=== PATIENT | female | born 1990 | race Hispanic/Latino ===

== ENCOUNTER 2016-12-07 19:35 | Observation (INO) | payer OTHER ==
[~2016-12-07] VITALS: Ht 152.4 cm; Wt 64.6 kg
[~2016-12-07 19:35] MED LIST: Benzocaine TOPICAL; Docusate Sodium PO; FERR325T39 PO; Ibuprofen PO; Lanolin TOPICAL; PNV1TABL9 PO; TUCPAD TOPICAL
[2016-12-07 19:41] VITALS: BP 146/98; PULSE 88; RESP 16; O2SAT 99
[2016-12-07 20:31] LABS: BASOPHILS % (AUTO) 0.3 % (0-3); EOSINOPHILS % (AUTO) 1.3 % (0-5); MONOCYTES % (AUTO) 5.2 % (4-12); Mean Corpuscular Hemoglobin 27.8 pg (27.0-35.0); NEUTROPHILS % (AUTO) 69.3 % (40-74); Platelet Count 234 bil/L (150-400)
--- NOTE | 2016-12-07 21:46 | ED.REPORT ---
HPI- Female Date of Service Dec 07, 2016 ED Provider: Dr. Nathan Mckeon D.O. A 26 year old female presents to the ED with left-sided sharp abdominal pain onset suddenly today. The patient also reports moderate vaginal bleeding. She recently tested positive on an at-home test and had a routine pelvic US yesterday, which indicated an empty uterus, a thick-walled mass adjacent and contiguous with the left ovary, and simple left and complex right ovarian cysts. Nursing Notes Stated Complaint: ABDOMINAL PAIN, BLEEDING WITH Chief Complaint: Female Abdominal Pain Nursing Notes Reviewed: Yes Allergies: Coded Allergies: No Known Allergies (Unverified Allergy, Unknown, 12/07/16) Scheduled ([Docusate Sodium]) 100 MG CAPSULE 100 MG PO BID Ferrous Sulfate (Iron) 325 Mg Tablet 325 MG PO DAILY Pnv Cmb#21/Iron/Folic Acid ( Complete Caplet) 1 Each Tablet 1 EACH PO DAILY Scheduled PRN ([Benzocaine]) 1 SPRAY/GM SPRAY 1 SPRAY TOPICAL PRN PRN PRN for perineal pain ([Ibuprofen]) 800 MG TABLET 800 MG PO Q6H PRN PRN For Pain ([Lanolin]) 14 APPLIC/7 GM OINT 1 APPLIC TOPICAL PRN PRN PRN apply to nipples Witch Lyndsey/Glycerin (A.e.r Pads) 12 Towelette/Pkg Towelette 1 TOWELETTE TOPICAL PRN PRN PRN for perineal pain General Time Seen by MD: 21:45 Chief Complaint Abdominal pain... (Left-sided) Hx Obtained From: Patient Arrived By: Walk-in Sudden in Onset?: Yes Onset Occurred: 9 - 12 hours ago Symptom Duration: Since onset Location: : LLQ: LUQ Quality: Painful, Sharp Severity: Current: Moderate Severity: Maximum: Moderate Associated with: Denies: Fever Status: Positive - home urine HCG : 2 Para: 1 Pertinent Negative: Relieved by nothing Recent Healthcare: Recent doctor visit Similar Sx Previous: No Past Medical History Past Medical History - 12/07/16 Exercise-induced and allergy induced asthma Chlamydia Past Surgical History None reported Smoking History Never Smoker Social History Other Social History: , Lives with children Ambulatory Status Independent Review of Systems Constitutional: Denies: Fever GI: Reports: Abdominal pain (Left-sided), Denies: Diarrhea, Vomiting Female: Reports: Vaginal bleeding - abnl Complete sys rev & neg: except as marked. Respiratory: Reports: Shortness of breath Physical Exam Initial Vital Signs Vital Signs (First) Date Time Temp Pulse Resp B/P Pulse Ox O2 Delivery O2 Flow Rate FiO2 12/07/16 19:41 36.6 88 16 146/98 99 Room Air Initial VS: Reviewed Head / Eyes: Atraumatic, Normocephalic ENT: Conjunctiva normal, No scleral icterus Neck: Supple, Full range of motion Respiratory: Breath sounds normal, Clear to auscultation, No respiratory distress Cardiovascular: Regular rate & rhythm, Heart sounds normal Skin: Warm, Dry, No cyanosis Neurologic: Alert, Oriented, Nonfocal Psychiatric: Mood/affect normal, Behavior normal, Normal thought content General/Constitutional: Awake, Alert Abdomen: Soft Tenderness/Guarding/Rebound: Positive: Tender LLQ... (Mild) Interpretation & Diagnostics Lab Results Interpretation Result Diagram: 12/08/16 0110 Test 12/07/16 20:17 12/07/16 23:02 HCG Beta Subunit 3101mIU/mL Hold Navarro Top Tube Received (Received) Hold Purple Top Tube Received (Received) US Focused OB US PELVIS TRANSABDOMINAL AND TRANSVAGINAL IMPRESSION: Findings are most worrisome for ruptured ectopic and surgical exploration is needed, and has been arranged. Findings discussed with Dr. Mckeon at 12/08/2016 12:12:19 AM PST Transmitted to ED by Gio Green D.O. at 12/08/2016 - 12:14:37 AM PST Exam Performed by: Allied health pract Exam Interpreted by: Radiologist Re-Eval/Medical Decision Med Decision/Clinical Course 26-year-old female presents with sudden onset left lower pelvic pain. Evidently she had an ultrasound yesterday that was suspicious for possible ectopic with a complex left ovarian lesion. Dr. Marquez referred to ER. On examination vitals were stable. She was tender in left lower quadrant however she did not have peritonitis. Initial CBC was normal. Quant hCG was 3000. Repeat ultrasound showed a moderate amount of hemoperitoneum and the complex left ovarian mass to have increased in size. I initially consulted the on-call intermediate manager Dr. Vela. He evaluated Oxana in the emergency department and he has requested that Dr. Terrell evaluate because he is unable to take Oxana to the operating room because he has a patient in active labor. Dr. Terrell graciously evaluated Oxana in the emergency department and will be taking him to the operating room for definitive care. Source of Hx: Old records Re-Evaluation/Progress : Time of Eval: 22:46 Patient Status: Condition improved Re-Evaluation/Progress Note: Discussed with patient US and lab results, diagnosis, and plan for admit. Patient agrees with plan for care and all questions were addressed. Consultation #1: Referral / Consult Name: Horace Vela MD Call Returned at: 22:44 Weapons Engineer: Will see patient, Agrees with eval, Agrees with plan Note: SUPERVISOR ASSEMBLY DEPARTMENT Consultation #2: Referral / Consult Name: Horace Vela MD Call Returned at: 23:07 Weapons Engineer: Agrees with eval, Agrees with plan, Referred to other consult ( ) Note: SUPERVISOR ASSEMBLY DEPARTMENT: Recommends consulting with Dr. Terrell Consultation #3: Referral / Consult Name: Madi Terrell MD Call Returned at: 23:09 Weapons Engineer: Will see patient, Agrees with eval, Agrees with plan, Accepts admit Note: saute chef: Discussed patient's case Counseled Regarding: Diagnosis, Lab results, Need for admission Discharge & Departure Shift Change Sign-Out Response to Therapy: Improved Impression: Primary Impression: Ruptured ectopic Disposition: ADMITTED TO HOSPITAL Discharge Condition All VS Reviewed: Yes Condition: Stable Referrals: Dinora Marquez MD (PCP) Crit Care Except Billable Proc Time Spent: 30-74 minutes Services Performed: Patient management by me, Time spent at bedside, Reviewing test results, Reviewing imaging, Discussing patient care, Documentation in record Scribe Attestation Portions of this note were transcribed by Trista Baron. I, Dr. Mckeon, personally performed the history, physical exam, and medical decision-making; I reviewed and confirmed the accuracy of the information in the transcribed note. Signed by: Lore Pagan, 12/08/2016, 00:57 copies to: Dinora Marquez MD, Todd P DO Dec 07, 2016 21:46 TRISTA BARON Dec 07, 2016 22:03 SUPERVISOR ASSEMBLY DEPARTMENT: Recommends consulting with Dr. Terrell Consultation #3: Referral / Consult Name: Madi Terrell MD Call Returned at: 23:09 Weapons Engineer: Will see patient, Agrees with eval, Agrees with plan, Accepts admit Note: saute chef: Discussed patient's case Counseled Regarding: Diagnosis, Lab results, Need for admission Discharge & Departure Impression: Primary Impression: Ruptured ectopic Disposition: ADMITTED TO HOSPITAL Discharge Condition All VS Reviewed: Yes Condition: Stable Referrals: Dinora Marquez MD (PCP) Crit Care Except Billable Proc Time Spent: 30-74 minutes Services Performed: Patient management by me, Time spent at bedside, Reviewing test results, Reviewing imaging, Discussing patient care, Documentation in record Scribe Attestation Portions of this note were transcribed by Trista Baron. I, Dr. Mckeon, personally performed the history, physical exam, and medical decision-making; I reviewed and confirmed the accuracy of the information in the transcribed note. Signed by: Lore Pagan, 12/08/2016, 00:57 copies to: Dinora Marquez MD, Todd P DO Dec 07, 2016 21:46 TRISTA BARON Dec 07, 2016 22:03
[2016-12-07 23:00] VITALS: BP 136/78; PULSE 72; RESP 14; O2SAT 97
[2016-12-08] VITALS (9 sets, daily range): BP systolic 93–130; BP diastolic 58–80; PULSE 77–110; RESP 14–23; O2SAT 95–100
[2016-12-08 01:15] LABS: BASOPHILS % (AUTO) 0.2 % (0-3); EOSINOPHILS % (AUTO) 0.7 % (0-5); Mean Corpuscular Hemoglobin 27.4 pg (27.0-35.0); Mean Corpuscular Volume 85.7 fL (81-100); NEUTROPHILS % (AUTO) 74.8 % (40-74); Platelet Count 233 bil/L (150-400)
--- NOTE | 2016-12-08 01:28 | PCM.HPANE ---
Patient Data Surgeon Admitting Provider:Madi Terrell MD Attending Provider:Madi Terrell MD Primary Care Physician:Dinora Marquez MD Other Provider:Zackery Quintana Anesthesia Reason for Visit Ruptured Ectopic Ht/WT & BMI Height (Feet): 5 Height (Inches): 0 Weight (Kilograms): 65 Body Mass Index Allergies Coded Allergies: No Known Allergies (Unverified Allergy, Unknown, 12/07/16) Diabetes History Hx Diabetes?: No Medications Active Scripts Witch Lyndsey/Glycerin (A.e.r Pads)12 Towelette/Pkg Towelette1 Towelette TOPICAL PRN PRN for perineal pain #12 TOWELETTE Prov:Dinora Marquez MD 10/10/14 [Lanolin] (Lansinoh Ointment)14 APPLIC/7 GM OINT No Conflict Check1 Applic TOPICAL PRN PRN apply to nipples Prov:Dinora Marquez MD 10/10/14 [Ibuprofen] (Motrin)800 MG TABLET No Conflict [id number] Mg PO Q6H PRN For Pain # 40 TABLET Ref 0 Prov:Dinora Marquez MD 10/10/14 [Docusate Sodium] (Colace)100 MG CAPSULE No Conflict [id number] Mg PO BID #60 CAPSULE Ref 0 Prov:Dinora Marquez MD 10/10/14 [Benzocaine] (Dermoplast 20% Stuart)1 SPRAY/GM SPRAY No Conflict Check1 Stuart TOPICAL PRN PRN for perineal pain #1 CAN Prov:Dinora Marquez MD 10/10/14 Reported Medications Ferrous Sulfate (Iron)325 Mg [id number] Mg PO DAILY 10/08/14 Pnv Cmb#21/Iron/Folic Acid ( Complete Caplet)1 Each Tablet1 Each PO DAILY 10/08/14 History Cardiovascular History: Denies:: Congestive Heart Failure Hypertension Respiratory History: Denies:: Tuberculosis Hx Surgeries?: No Hx Diabetes: No Hx Alcohol Use: NoHx Substance Use: No Smoking Status: Never Smoker Have You Smoked inLast 12 mo: No Stop/Bang Risk Assessment Category Category 1A: Patient has history of documented sleep apnea, and HAS NOT received any narcotic, sedative or anesthesia administration during this stay. Category 1B: Patient has history of documented sleep apnea, and HAS received any narcotic , sedative or anesthesia administration during this stay Category 2: Patient has SUSPECTED Obstructive Sleep Apnea, and HAS received any narcotic , sedative or anesthesia administration during this stay. Category 3: Patient has SUSPECTED Obstructive Sleep Apnea and HAS NOT received narcotic, sedative or anesthesia administration during this stay. Category 4: Outpatient in Procedural Areas with known sleep apnea or who screen positive for High Risk via the STOP/BANG questionnaire. Exam Exam Vital Signs Vital Signs Date Time Temp Pulse Resp B/P Pulse Ox O2 Delivery O2 Flow Rate FiO2 12/07/16 19:41 36.6 88 16 146/98 99 Room Air General Appearance: Alert, Oriented X3, Cooperative, Mild Distress HEENT/AIRWAY: MP 2, Neck Movement (from), Mouth Opening (wnl) Lungs: Clear to Auscultation Heart: Exam Unremarkable Meds/Labs/Diagnostics Labs Test 12/07/16 20:17 12/07/16 23:02 12/08/16 01:10 HCG Beta Subunit 3101mIU/mL Hold Navarro Top Tube Received (Received) Hold Purple Top Tube Received (Received) White Blood Count 10.5th/mm3 (3.8-10.1) Red Blood Count 4.53mil/mm3 (3.90-5.20) Hemoglobin 12.4g/dL (12.0-15.6) Hematocrit 38.8% (35.0-46.0) Mean Corpuscular Volume 85.7fL (81-100) Mean Corpuscular Hemoglobin 27.4pg (27.0-35.0) Mean Corpuscular Hemoglobin Concent 32.0% (32.0-37.0) Red Cell Distribution Width 13.3% (12.3-15.4) Platelet Count 233bil/L (150-400) Neutrophils (%) (Auto) 74.8% (40-74) Lymphocytes (%) (Auto) 19.1% (14-46) Monocytes (%) (Auto) 5.0% (4-12) Eosinophils (%) (Auto) 0.7% (0-5) Basophils (%) (Auto) 0.2% (0-3) Plan Impression Patient chart reviewed, patient interviewed and anesthestic plan with risks, benefits, and alternatives discussed, and informed consent obtained. ASA Physical Status: ASA2 Mod Systemic Disease Anesthetic Plan: GA Bene/Risks/Altern/Consents: Yes HP Complete Prior to Induction: Yes Donte Nazario MD Dec 08, 2016 01:28
[2016-12-08] MEDS ORDERED: Lactated Ringer's 1,000 ML IV ONE ×2 (01:36→04:56)
--- NOTE | 2016-12-08 01:48 | HP ---
[address] [address] HISTORY AND PHYSICAL PATIENT: REGINE SOOD : 1990 MR#: [id number] ADMIT: 12/08/2016 JOB ID: [id number] DATE OF SERVICE: 12/07/2016 GYNECOLOGIC CONSULTATION: HISTORY OF PRESENT ILLNESS: The patient is a 26-year-old, G1, P1, AB0, woman whose usual physician is Dr. Dinora Marquez. The patient was in usual state of health, with last normal menstrual period beginning on October 08, 2016, which would place patient about 8-1/2 weeks along in her . However, she had unusual light bleeding on November 16, 2016, that was not suggestive of normal period, and bleeding then resolved before returning on December 07, 2016, in conjunction with significant pain in the late afternoon of December 07, 2016, moderate to severe, left-sided. This pain brought patient to the emergency department for evaluation. Note that patient had ultrasound on December 06, 2016, that demonstrated no intrauterine and possible gestational sac in the left adnexal region and no other free fluid or other worry. On the other hand, ultrasound on December 07, 2016, demonstrated again no intrauterine , and now much more enlarged left adnexal mass at greater than 5 cm and within it the small suspected gestational sac, and then reportedly per wood technologist, "moderate to a lot" of free fluid, complex, appearing as blood. The biggest pocket appeared to be located anterior to the uterus, perhaps 5 x 5 cm, and there was free fluid elsewhere. Note that beta hCG level was 3101, at a level certainly that intrauterine would likely be seen ultrasonographically if present. DISCUSSION: I have had a thorough discussion with patient and her in regard to the positive test, hCG level that is greater than 3000, although without intrauterine noted sonographically, with a left adnexal mass that is evolving and growing, and now with apparent blood intra-abdominally, although on December 06, 2016, no free fluid of note. Everything points to ectopic , probably tubal , bleeding from the end of the tube versus actual tubal rupture, the latter more likely. The patient's pain has improved some and her hemoglobin has been stable, although internal bleeding is suspected and pain episode were very significant, and would be anticipated again. I have recommended surgical intervention, i.e. operative laparoscopy and possible laparotomy, fully explained what these procedures are. We will determine if in fact there is tubal , and if it appears that trying to save the tube would be reasonable versus simply removal of part of the tube or all of it, depending on likelihood of intraoperative or postoperative bleeding if tube is left and simply shelled out, also considering the risk of recurrent ectopic if tube is left depending on tubal health. Patient realizes we cannot guarantee that an ectopic would not occur on either side after surgical procedures. The patient understands there are risks to surgery, which include bleeding, infection, injury to the urinary tract and bowel, wound problems, postoperative pain, anesthetic risks, etc. There could be scarring. There could be chance of ectopic in the future on left or right sides. All questions answered, no guarantees have been stated or implied, and patient has signed informed consent for surgery, which will soon began. In summary then, I have concluded in consultation that patient is , likely with left-sided ectopic , probably tubal , and that surgery is warranted now in light of suspected internal bleeding. The patient has understood that we will practice conservative surgical procedures when possible, and try to save both tubes and ovaries, although surgical findings, bleeding and risk of further bleeding, risk of future tubal if tube is left, etc. will all be taken into account during this decision-making process. PHYSICAL EXAMINATION: On admission vital signs stable. Initial blood pressure elevated at 146/98, pulse 88. Neck: No thyromegaly. Lungs: Clear to auscultation and percussion. Heart: Regular in rate and rhythm. Abdomen: Soft, there is no palpable mass, and no tenderness to percussion. There is mild tenderness with palpation across the upper abdomen, also mild to moderate tenderness in the suprapubic region, and moderate plus tenderness in the left lower quadrant. There is positive rebound tenderness. DIAGNOSTIC DATA: Beta hCG level 3101. Initial hemoglobin 13.1, with platelets 234. Followup hemoglobin reportedly 14.0. Note that verbal report was given to me regarding the ultrasound on December 07, 2016. Findings included no intrauterine , mass involving the left adnexal region at greater than 5 cm, and with suspected gestational sac therein. There also is a moderate to more amount of blood and clots thought to be in the pelvis and abdomen. IMPRESSION: 1. Suspected left ectopic with intraperitoneal bleeding now. 2. Prior vaginal delivery. 3. Apparent prior Chlamydia infection. 4. Patient-reported exercise-induced and allergy-induced asthma. 5. No smoking, alcohol or drug use. 6. No reported prior surgeries. 7. No medication use reportedly. 8. No known drug allergies. 9. History of cystitis. RECOMMENDATIONS: The patient should be admitted to [facility] and operative laparoscopy and possible laparotomy undertaken, consent has been signed. We will then deal with the ectopic if identified, and save the fallopian tube if feasible. MTDD
[2016-12-08] MEDS ORDERED: Lactated Ringer's 1,000 ML IV SCH (02:24)
[2016-12-08] MEDS ORDERED: Lactated Ringer's 500 ML IV PRN (02:24)
[2016-12-08] MEDS ORDERED: Ondansetron 2 mg/mL 2 mL Inj IVPUSH PRN ×2 (02:25→02:35)
[2016-12-08] MEDS ORDERED: Acetaminophen IV 1,000 MG in IV Premix 1 EACH IV ONE (02:25)
[2016-12-08] MEDS ORDERED: EPHEDrine Sulfate 50 mg/mL Inj IVPUSH PRN (02:25)
[2016-12-08] MEDS ORDERED: hydrALAZINE 20 mg/mL Inj IVPUSH PRN (02:25)
[2016-12-08] MEDS ORDERED: Atropine 0.4 mg/mL Inj IVPUSH PRN (02:25)
[2016-12-08] MEDS ORDERED: HYDROmorphone 1 mg/mL Inj IVPUSH PRN (02:25)
[2016-12-08] MEDS ORDERED: fentaNYL-PF 50 mCg/mL 2 mL Inj IVPUSH PRN (02:25)
[2016-12-08] MEDS ORDERED: hydrOXYzine Inj 25 MG/1 mL SDV IM PRN (02:25)
[2016-12-08] MEDS ORDERED: EPHEDrine Sulfate 50 mg/mL Inj IM PRN (02:25)
[2016-12-08] MEDS ORDERED: Phenylephrine 10,000 mCg/mL Inj IVPUSH PRN (02:25)
[2016-12-08] MEDS ORDERED: Labetalol 5 mg/mL 4 mL Inj IV PRN (02:25)
[2016-12-08] MEDS ORDERED: Dexamethasone 4 mg/mL Inj IVPUSH PRN (02:25)
[2016-12-08] MEDS ORDERED: MetoCLOpramide 5 mg/mL 2 mL Inj IVPUSH PRN (02:35)
[2016-12-08] MEDS ORDERED: oxyCODONE-Acetamin 5-325 mg Tablet PO PRN (02:35)
[2016-12-08] MEDS ORDERED: Bupivacaine-MPF 0.5% 30 mL Inj INFILTRATE ONE (02:55)
--- NOTE | 2016-12-08 04:48 | PCM.ANEP1 ---
Post Anesthesia Phase 1 PACU Phase 1 Assessment Vital Signs Vital Signs Date Time Temp Pulse Resp B/P Pulse Ox O2 Delivery O2 Flow Rate FiO2 12/08/16 02:05 36.6 88 16 122/78 99 Room Air 12/08/16 02:00 36.7 82 18 130/64 96 Room Air 12/07/16 23:00 36.8 72 14 136/78 97 Anesthetic Administered: GA Level of Alertness: Awake, talking WYATT's with Equal Strength: Yes Pain: No Nausea or Vomiting: No Oxygen Delivery: Room Air Lungs: Clear to Auscultation Donte Nazario MD Dec 08, 2016 04:47
[2016-12-08] MEDS: HYDROmorphone 1 mg/mL Inj IVPUSH PRN ×2 (05:27→08:51)
--- NOTE | 2016-12-08 05:34 | NUR ---
Transfer from PACU Report received from Sumaya Henriquez at 0505. pt arrived to the floor at 0515 via gurney with belonging and souse at the bed side. pt closed eyes, but responsive for voice. Pt on room air with SPO2 100% and Respiration 14 breaths/min. LR running at 120 ml/hr. pt rated incision pain 10/10. administered 1mg IVP Dilaudid. VSS. Incision CDI. oriented spouse to room and call light. will continue to monitor. Addendum: 12/08/16 at 0653 by MARISSA WAHL RN Peripad in place. no drainage noted until this time.
--- NOTE | 2016-12-08 07:40 | PCM.ANEP2 ---
Post Anesthesia Evaluation ASA/CMS Post Anesthesia VS in Patient's Normal Range?: Yes Resp Stable; Airway Patent?: Yes CV Function & Hydration Stable: Yes Mental Status Recovered?: Yes Pain control Satisfactory?: Yes N/V Control Satisfactory?: Yes Donte Nazario MD Dec 08, 2016 07:40
--- NOTE | 2016-12-08 09:42 | DRSVH ---
PROCEDURE: US PELVIC SONOGRAM + TRANSVAGINAL SONOGRAM INDICATIONS: sudden severe LLQ pain, abnormal US 12/06/16 TECHNIQUE: Real-time scanning was performed of the pelvic organs, with image documentation. Additional endovagi nal scanning was necessary due to incomplete visualization of the adnexal and endometrial structures by transabdominal scanning. COMPARISON: [facility] Ul[facility]ound, US, US PELVIC+TRANSVAG, 12/06/2016, 7:38. FINDINGS: Transabdominal scanning: Limited scanning through the kidneys shows no hydronephrosis. No pathologi c free abdominal or pelvic fluid. Endovaginal scanning: Uterus: Uterus is normal in size at 8.6 x 3.6 x 4 point cm. The endometrium measures 7.4 mm in comb ined thickness. No intrauterine is identified. Ovaries: Complex cyst again seen involving the right ovary measuring 1.4 x 1.3 x 1.4 cm. The left ov saúl is prominent and again there is a rounded, thick walled mass adjacent and contiguous with the lef t ovary similar to prior examination measuring roughly 7 mm. No yolk sac or pole is seen. Tod ay's examination demonstrates a moderate amount of adjacent hemorrhagic fluid and likely hemorrhagic clot suspicious for ruptured ectopic and resultant pelvic hematoma. IMPRESSION: 7 mm thick walled, rounded mass with central sonolucency again seen adjacent to the left ovary with today's examination demonstrating moderate hemorrhagic fluid and clot suspicious for pelvi c hematoma secondary to ruptured ectopic . Recommend clinical correlation. Dr. Mckeon given results by the software support specialist at 2250 hrs. 12/07/2016. Note: These findings are concordant with the preliminary interpretation. Dictated by: Kiel Messina [facility] Interpreted: April Arnold MD on 12/08/2016 at 9:33 Transcribed by: SARAH on 12/08/2016 at 9:41 Approved by: April Arnold MD, PhD on 12/08/2016 at 15:50
[2016-12-08] MEDS ORDERED: HYDR99LO2 TP (10:30)
[2016-12-08] MEDS ORDERED: DESO1TAB4 PO (10:41)
--- NOTE | 2016-12-08 12:17 | NUR ---
Abdominal pain and nausea patient is alert and oriented X3. Able to make needs known. vital signs WNL. PRN pain medication given for bilateral shoulder pain and abdominal pain after surgery for pain 6/10 with effective results. clear liquids tolerating well. patient went to bathroom with assistance and out put 300cc this aM. Continue to monitor vital signs, pain, and output.
--- NOTE | 2016-12-08 17:03 | NUR ---
Discharge Doctor here at the bed side and spoke to the patient r/t discharge home, Reviewed with patient discharge medications, new prescriptions for pain and constipation including care notes regarding ectopic . Doctor aware patient voiding and has been independent to go to the bathroom. clear liquid diet r/t one episode of vomiting this AM. no nausea and pain at this time. PRN pain medication was given PO as ordered with effective results. patient wants to eat before going home.
[2016-12-08] MEDS ORDERED: fentaNYL-PF 50 mCg/mL 2 mL Inj ONE (17:59)
--- NOTE | 2016-12-08 18:01 | NUR ---
Discharged patient discharged with spouse aprrox 1800 after dinner per patient preference. denied pain or nausea before discharge.
--- NOTE | 2016-12-08 22:33 | OP ---
[address] [address] OPERATIVE REPORT PATIENT: REGINE SOOD : 1990 MR#: [id number] ADMIT: 12/08/2016 JOB ID: [id number] DATE OF SURGERY: 12/08/2016 SURGEON: Madi Terrell MD. SCHOOL PROGRAM DIRECTOR: None. ANESTHESIA: General. PREOPERATIVE DIAGNOSIS(ES): Suspect left ectopic with internal bleeding. POSTOPERATIVE DIAGNOSIS(ES): Suspect left ectopic with internal bleeding, left tubal confirmed. PROCEDURES PERFORMED: 1. Operative laparoscopy. 2. Laparoscopic left salpingectomy with excision of ectopic . FINDINGS AT SURGERY: Upon laparoscopic evaluation, there was noted to be unruptured left tubal within the ampullary portion of the tube, significantly distended broadly with very thin tubal wall over an extensive area. The vast majority of the tube appeared to be involved with /distention. There was bleeding from the fimbriated end of the tube. There was no obvious tubal adhesion disease, endometriosis, or infection. It was felt that tube features as described were sufficiently extensive and severe as to significantly increase the likelihood of left tubal in the future if tube retention was undertaken. Thus, consistent with discussion with patient and preoperatively, decision was then made to remove the entire tube, see below. Right fallopian tube was completely normal in appearance as were both right and left ovaries. Uterus also appeared normal. Note that there was approximately 150 cc of blood and clots within the pelvis. There was no internal bleeding, however, at procedure's close, now with left tube having been removed along with the ectopic , with uterus, ovaries and right tube remaining. It certainly is anticipated that the patient will do well during the postoperative time frame. It would also be anticipated that she will be able to achieve intrauterine in the future with healthy-appearing right fallopian tube, ovaries, uterus, and pelvis, although the patient realizes that she is at increased risk for ectopic now having had one. PROCEDURE IN DETAIL: The patient was placed in supine position on the operating table and general anesthesia was induced. She was then very carefully repositioned into the low dorsal lithotomy position and prepped and draped in the usual sterile manner. Appropriate time-out was taken. VICENTE cannula was secured in place within the cervix/uterus and attention was then directed to the abdomen where a short transverse subumbilical incision was made with a knife. This incision was carried through the skin, subcutaneous tissues and fascial layer and the peritoneal cavity was carefully entered and trocar sheath secured in place. Laparoscope was introduced, CO2 and light sources were connected, and video camera attached, video laparoscopy was accomplished with findings as noted above. Note that short transverse incision was also made at the midline at the hairline with 5 [address] secured in [address] and probe and a grasping instrument utilized to manipulate adnexal structures to facilitate exposure and visualization with findings, as noted above. Once the decision was made to remove the left fallopian tube on the basis of the extent of tubal involvement and distention and apparent damage, a 3rd 5 mm trocar sheath was secured in place inferolateral to the subumbilical port. LigaSure coag/cut device was then advanced through this port and with laparoscopic visualization and tubal traction, visualization was excellent. Then, using serial coag and then cuts, until ultimately the left fallopian tube was from the left ovary and blood supply and attaching structures and then the isthmic portion of the left fallopian tube was electrocoagulated and divided adjacent to the uterus. There was no bleeding along this line of electrocoagulation and separation. The lower pelvis short transverse incision at the hairline was then extended to around 1 cm plus in width and 10 mm trocar and sheath was secured in place and then EndoCatch bag was advanced into the pelvis. The left fallopian tube containing the ectopic was then placed into the bag which was cinched shut, and then the entire sheath and bag were easily removed through the abdominal wall. Final inspection of the inferolateral and lower trocar sheath sites demonstrated no bleeding, and CO2 gas was allowed to escape and instruments were also removed from the subumbilical site. The subumbilical fascial incision was then closed in pursestring fashion using Vicryl suture and each skin incision was then closed with interrupted vertical mattress stitches of 4-0 Vicryl suture, only up to subcuticular location. The stitches are expected to than simply dissolve/absorb, note that there was no bleeding occurring at any site, and benzoin and then 1/2-inch Steri-Strips and bandages were placed. VICENTE cannula was then removed from the vagina/cervix/uterus and procedure was complete. The patient returned to supine position, awakened, and taken to the recovery room. Estimated blood loss during the case. scant (blood noted internally was about 150 cc having occurred prior to surgery). COMPLICATIONS: None. PROGNOSIS: Good for surgical recovery.
--- NOTE | 2016-12-10 12:42 | DIS ---
[address] [address] DISCHARGE SUMMARY PATIENT: REGINE SOOD : 1990 MR#: [id number] ADMIT: 12/08/2016 JOB ID: [id number] DIS: 12/08/2016 DISCHARGE DIAGNOSIS: Left tubal , with internal bleeding, surgically resolved. PROCEDURES PERFORMED DURING HOSPITALIZATION: 1. Operative laparoscopy. 2. Laparoscopic left salpingectomy with excision of tubal . HOSPITAL COURSE: The patient was admitted to [facility] on December 08, 2016, after TRANSITION ASSISTANT consultation for emergency department physician on December 07, 2016. Left tubal was suspected and, indeed, identified at surgery, which was recommended and undertaken. The patient was observed throughout the day on December 08, 2016, and she had reasonable pain management, she was able to ambulate and void, she was able to hold down fluids, she had no leg pain or shortness of breath, nor incisional problems. She had some shoulder pain consistent with potential for residual blood, as well as the CO2, in the diaphragm. The patient was ready for discharge on the day of surgery, i.e., on December 08, 2016. DISCHARGE PROGRAM: Patient will call p.r.n., yet otherwise will follow up at [facility] with Dr. Terrell for postoperative checkup in two weeks. She will observe pelvic rest for four weeks and not do any heavy lifting for four weeks. Discharge medication is that of Percocet, prescription given. Note that the patient had normal appearing right fallopian tube and normal appearing ovaries and uterus. We would anticipate intrauterine is more likely than ectopic next time, although there is a higher than average chance that ectopic will occur. She knows to check in right away with a physician if she becomes . She also plans to wait at least several months before trying to become again. KODI
--- NOTE | 2016-12-12 07:48 | PATH ---
SURGICAL PATHOLOGY Attending Physician:Madi Terrell M.D CASE STATUS: Signed Out PATIENT NAME: Oxana Workman PID: [id number] : 1990 DATE COLLECTED:12/08/2016 00:00 SPECIMEN: Fallopian Tube, Ectopic CLINICAL HISTORY: BLEEDING TUBAL/ECOPTIC 1). LEFT FALLOPIAN TUBE W/ ECTOPIC FINAL DIAGNOSIS: Left Fallopian Tube with Ectopic : Fimbriated fallopian tube with intraluminal immature placental tissue and hemorrhage (ectopic ). No evidence of malignancy. ICD10 O00.80 GROSS DESCRIPTION: The specimen is received in formalin, labeled with the patient's name, sublabeled as fallopian tube w/ ectopic and consists of a fimbriated fallopian tube (length-8.2 cm, diameter-up to 2.4 cm) and multiple fragments of red-brown spongy tissue (4.5 x 3.5 x 1.3 cm in aggregate). The serosa is dark maroon smooth and shiny. The lumen is distended and contains one dark maroon glistening soft tissue. The separate tissue fragments are unremarkable. No parts are identified. Section code: (A-H) fallopian tube, serially sectioned with the distended area longitudinally opened first, submitted proximal to distal; (I) fimbria, bivalved the colon (J-N) tissue fragments, serially sectioned. Specimen entirely submitted. 12/08/16 JM MICRO DESCRIPTION: Please see diagnosis. ICD-9 CODES: CPT CODES: 1: 57039 Electronically Signed Out Kriss Mcneal MD [facility] [address], [place] [address] Technical component performed at [facility], [address], [place], [address]
== END 2016-12-08 18:00 | disposition home or self-care (01) ==
LOC: SED 19:35 → MOC 12-08 00:52 → INTOOBSV 12-08 00:52 → MOC 12-08 02:08
PROVIDERS: ADMIT Obstetrics & Gynecology; ATTEND Obstetrics & Gynecology
DX: O00.10 Tubal pregnancy without intrauterine pregnancy (principal); Z3A.08 8 weeks gestation of pregnancy
CPT/HCPCS: 36415; 59151; 76830; 76856; 84702; 85014; 85018; 85025; 99291; G0378; J1170; J2250; J2765; J3010; J7120